=== PATIENT | female | born 1975 | race African-American/Black ===

== ENCOUNTER 2017-08-07 02:41 | Emergency (ER) | payer MEDICARE, MEDICAID ==
[~2017-08-07] VITALS: Ht 160 cm; Wt 91.5 kg
[~2017-08-07 02:41] MED LIST: ASPI-496 PO
[2017-08-07] MEDS ORDERED: KETOROLAC 30 MG/1 ML IVPush ONE (03:30)
[2017-08-07] MEDS ORDERED: SODIUM CHLORIDE FLUSH 10ML SYR IVF ONE (03:30)
[2017-08-07] MEDS ORDERED: KETOROLAC 30 MG/1 ML ONE (03:30)
[2017-08-07 03:31] LABS: HEMATOCRIT 39.5 % (34.6-47.8); HEMOGLOBIN 13.3 g/dL (11.7-16.4); WHITE BLOOD COUNT 8.8 x10^3/uL (3.4-10)
[2017-08-07 03:43] LABS: BLOOD UREA NITROGEN 19 mg/dL (7-18)
[2017-08-07 03:47] LABS: IS PT STATUS REG ER OR PRE ER? YES
[2017-08-07 04:36] VITALS: BP 144/68
== END 2017-08-07 04:41 | disposition home or self-care (01) ==
LOC: ED 04:30
DX: R07.89 Other chest pain (principal); R11.2 Nausea with vomiting, unspecified; R06.02 Shortness of breath; Z98.51 Tubal ligation status
CPT/HCPCS: 36415; 71010; 80048; 82040; 84484; 85025; 93005; 96374; 99285; J1885

== ENCOUNTER 2017-08-15 07:08 | Emergency (ER) | payer MEDICARE, MEDICAID ==
[~2017-08-15] VITALS: Ht 160 cm; Wt 90.0 kg
[2017-08-15] MEDS ORDERED: MORPHINE SULFATE 4 MG/ML, 1ML IVPush PRN (08:00)
[2017-08-15] MEDS ORDERED: MAALOX/HYOSCYAMINE/LIDOCAINE 45 ML BTL ONE (08:15)
[2017-08-15] MEDS ORDERED: MORPHINE SULFATE 4 MG/ML, 1ML ONE (08:15)
[2017-08-15] MEDS ORDERED: FAMOTIDINE 20 MG/2 ML ONE (08:16)
[2017-08-15 08:29] LABS: HEMATOCRIT 36.4 % (34.6-47.8); HEMOGLOBIN 12.2 g/dL (11.7-16.4); WHITE BLOOD COUNT 8.2 x10^3/uL (3.4-10)
[2017-08-15 08:40] LABS: ASPARTATE AMINO TRANSFERASE 12 U/L (15-37); BLOOD UREA NITROGEN 13 mg/dL (7-18)
[2017-08-15] MEDS ORDERED: FAMOTIDINE 20 MG/2 ML IVP ONE (09:00)
[2017-08-15] MEDS ORDERED: SODIUM CHLORIDE FLUSH 10ML SYR IVF ONE (09:00)
[2017-08-15] MEDS ORDERED: MAALOX/HYOSCYAMINE/LIDOCAINE 45 ML BTL PO ONE (09:00)
[2017-08-15] MEDS ORDERED: HYDROmorphone 1 MG/ML, 1ML IV ONE (09:30)
[2017-08-15 10:32] VITALS: BP 125/70
== END 2017-08-15 10:40 | disposition home or self-care (01) ==
LOC: ED 07:40
DX: N83.291 Other ovarian cyst, right side (principal); Z98.51 Tubal ligation status
CPT/HCPCS: 36415; 76830; 80053; 81003; 83690; 84703; 85025; 96374; S0028

== ENCOUNTER 2018-07-09 22:00 | Emergency (ER) | payer MEDICARE, MEDICAID ==
[2018-07-09] MEDS ORDERED: ASPIRIN 81 MG TABLET CHEW ONE (22:35)
[2018-07-09 22:49] LABS: BASOPHILS # (AUTO) 0.24 x10^3/uL (0-0.1); BASOPHILS % (AUTO) 3 % (0-1); EOSINOPHILS # (AUTO) 0.11 x10^3/uL (0-0.4); EOSINOPHILS % (AUTO) 1 % (1-7); LYMPHOCYTES # (AUTO) 3.49 x10^3/uL (1-3.4); LYMPHOCYTES % (AUTO) 38 % (22-44); MD NO; MEAN CORPUSCULAR HEMOGLOBIN 29.9 pg (27.0-34.8); MEAN CORPUSCULAR VOLUME 88.1 fL (80-100); MEAN PLATELET VOLUME 10.8 fL (7.4-10.4); MONOCYTES # (AUTO) 1.21 x10^3/uL (0.2-0.8); MONOCYTES % (AUTO) 13 % (2-9); NEUTROPHILS # (AUTO) 4.11 x10^3/uL (1.8-6.8); NEUTROPHILS % (AUTO) 45 % (42-75); PLATELET COUNT 244 x10^3/uL (130-400); RED BLOOD COUNT 4.35 x10^6/uL (3.82-5.3)
[2018-07-09] MEDS ORDERED: ASPIRIN 81 MG TABLET CHEW PO ONE (23:00)
[2018-07-09 23:02] LABS: ALANINE AMINOTRANSFERASE 17 U/L (12-78); ALBUMIN 3.3 g/dL (3.4-5.0); ANION GAP 6 mmol/L (5-15); CALCIUM 8.4 mg/dL (8.5-10.1); CHLORIDE 111 mmol/L (98-107); CREATININE 1.29 mg/dL (0.55-1.02)
[2018-07-09 23:06] LABS: ALKALINE PHOSPHATASE 54 U/L (45-117); BILIRUBIN,TOTAL 0.2 mg/dL (0.2-1.0); TOTAL PROTEIN 6.9 g/dL (6.4-8.2); TROPONIN I < 0.015 ng/mL (0.000-0.045)
[2018-07-10 00:20] VITALS: BP 133/76
== END 2018-07-10 00:26 | disposition home or self-care (01) ==
LOC: ED 23:59
DX: R07.2 Precordial pain (principal); G89.29 Other chronic pain; M10.9 Gout, unspecified; Z87.891 Personal history of nicotine dependence
CPT/HCPCS: 36415; 71045; 80053; 84484; 85025; 85379; 93005; 99285

== ENCOUNTER 2019-04-05 22:36 | Emergency (ER) | payer MEDICARE, MEDICAID ==
[~2019-04-05] VITALS: Ht 160 cm; Wt 108.8 kg
[2019-04-05 22:41] VITALS: BP 140/80
--- NOTE | 2019-04-05 23:29 | NUR ---
TO ROOM, URINE SAMPLE COLLECTED. PT COMPLAIN OF DRY MOUTH, INCREASED URINE, MULTIPLE COMPLAINTS
[2019-04-06] MEDS ORDERED: PROCHLORPERAZINE 10MG TABLET PO ONE
[2019-04-06] MEDS ORDERED: IBUPROFEN 600 MG TABLET PO ONE
[2019-04-06] MEDS ORDERED: PROCHLORPERAZINE 5 MG/ML, 2ML ONE (00:06)
[2019-04-06] MEDS ORDERED: IBUPROFEN 600 MG TABLET ONE (00:06)
[2019-04-06] MEDS ORDERED: PROCHLORPERAZINE 10MG TABLET ONE (00:11)
== END 2019-04-06 00:19 | disposition home or self-care (01) ==
LOC: ED 23:54
DX: I10 Essential (primary) hypertension (principal); R51 Headache; R11.0 Nausea; M10.9 Gout, unspecified; G89.29 Other chronic pain
CPT/HCPCS: 99283; Q0164

== ENCOUNTER 2019-10-19 22:05 | Emergency (ER) | payer MEDICARE, MEDICAID ==
[~2019-10-19] VITALS: Ht 160 cm; Wt 108.2 kg
[2019-10-19 23:00] LABS: ALBUMIN 3.5 g/dL (3.4-5.0); ANION GAP 4 mmol/L (5-15); CALCIUM 8.9 mg/dL (8.5-10.1); CHLORIDE 111 mmol/L (98-107); CREATININE 1.32 mg/dL (0.55-1.02)
[2019-10-19 23:05] LABS: TROPONIN I < 0.015 ng/mL (0.000-0.045)
[2019-10-19 23:21] LABS: BASOPHILS # (AUTO) 0.04 x10^3/uL (0-0.1); BASOPHILS % (AUTO) 0 % (0-1); EOSINOPHILS # (AUTO) 0.13 x10^3/uL (0-0.4); EOSINOPHILS % (AUTO) 1 % (1-7); LYMPHOCYTES # (AUTO) 3.42 x10^3/uL (1-3.4); LYMPHOCYTES % (AUTO) 32 % (22-44); MD NO; MEAN CORPUSCULAR HEMOGLOBIN 29.3 pg (27.0-34.8); MEAN CORPUSCULAR HGB CONC 33.4 g/dL (32.4-35.8); MEAN CORPUSCULAR VOLUME 87.8 fL (80-100); MEAN PLATELET VOLUME 11.4 fL (7.4-10.4); MONOCYTES # (AUTO) 1.31 x10^3/uL (0.2-0.8); MONOCYTES % (AUTO) 12 % (2-9); NEUTROPHILS # (AUTO) 5.74 x10^3/uL (1.8-6.8); NEUTROPHILS % (AUTO) 54 % (42-75); PLATELET COUNT 243 x10^3/uL (130-400); RED BLOOD COUNT 4.49 x10^6/uL (3.82-5.3); RED CELL DISTRIBUTION WIDTH 14.6 % (9.6-15.2)
[2019-10-20 00:21] VITALS: BP 140/82
== END 2019-10-20 00:23 | disposition home or self-care (01) ==
LOC: ED 23:59
DX: M79.662 Pain in left lower leg (principal); I10 Essential (primary) hypertension; G89.29 Other chronic pain; F17.200 Nicotine dependence, unspecified, uncomplicated
CPT/HCPCS: 36415; 80048; 82040; 83880; 84484; 85025; 93005; 99284

== ENCOUNTER 2019-12-03 15:57 | Emergency (ER) | payer MEDICARE, MEDICAID ==
[~2019-12-03] VITALS: Ht 160 cm; Wt 110.8 kg
[2019-12-03 15:59] VITALS: BP 156/87
[2019-12-03 16:54] LABS: ANION GAP 8 mmol/L (5-15); CALCIUM 9.3 mg/dL (8.5-10.1); CHLORIDE 111 mmol/L (98-107); CREATININE 1.07 mg/dL (0.55-1.02)
[2019-12-03 16:56] LABS: BASOPHILS # (AUTO) 0.03 x10^3/uL (0-0.1); BASOPHILS % (AUTO) 0 % (0-1); EOSINOPHILS # (AUTO) 0.26 x10^3/uL (0-0.4); EOSINOPHILS % (AUTO) 3 % (1-7); LYMPHOCYTES # (AUTO) 4.24 x10^3/uL (1-3.4); LYMPHOCYTES % (AUTO) 46 % (22-44); MD NO; MEAN CORPUSCULAR HEMOGLOBIN 28.8 pg (27.0-34.8); MEAN CORPUSCULAR HGB CONC 32.9 g/dL (32.4-35.8); MEAN CORPUSCULAR VOLUME 87.7 fL (80-100); MEAN PLATELET VOLUME 11.4 fL (7.4-10.4); MONOCYTES # (AUTO) 0.83 x10^3/uL (0.2-0.8); MONOCYTES % (AUTO) 9 % (2-9); NEUTROPHILS % (AUTO) 41 % (42-75); PLATELET COUNT 275 x10^3/uL (130-400); RED BLOOD COUNT 4.84 x10^6/uL (3.82-5.3)
== END 2019-12-03 17:32 | disposition home or self-care (01) ==
LOC: ED 17:05
DX: M79.10 Myalgia, unspecified site (principal); I10 Essential (primary) hypertension; Z98.51 Tubal ligation status
CPT/HCPCS: 36415; 80048; 85025; 99283

== ENCOUNTER 2019-12-10 11:06 | Emergency (ER) | payer MEDICAID, MEDICARE ==
[~2019-12-10] VITALS: Ht 160 cm; Wt 108.0 kg
--- NOTE | 2019-12-10 12:16 | NUR ---
PT C/O GENERALIZED PAIN STARTING ONE WEEK AGO. PT SEEN AND NEG FLU. PT BETTER FOR A WHILE AND PAIN RETURNED YESTERDAY. DENIES COUGH, N/V. CONNECTED TO MONITORING. CALL LIGHT IN REACH.
[2019-12-10] MEDS ORDERED: KETOROLAC 60 MG/2 ML ONE (12:20)
--- NOTE | 2019-12-10 12:25 | NUR ---
MEDS ADMIN PER JAN. PT RESTING ON [facility] WATCHING TV. NADN. FAMILY AT BEDSIDE.
[2019-12-10 12:27] LABS: BASOPHILS # (AUTO) 0.07 x10^3/uL (0-0.1); BASOPHILS % (AUTO) 1 % (0-1); EOSINOPHILS # (AUTO) 0.15 x10^3/uL (0-0.4); EOSINOPHILS % (AUTO) 2 % (1-7); LYMPHOCYTES # (AUTO) 3.22 x10^3/uL (1-3.4); LYMPHOCYTES % (AUTO) 42 % (22-44); MD NO; MEAN CORPUSCULAR HEMOGLOBIN 28.9 pg (27.0-34.8); MEAN CORPUSCULAR HGB CONC 33.1 g/dL (32.4-35.8); MEAN CORPUSCULAR VOLUME 87.1 fL (80-100); MEAN PLATELET VOLUME 10.7 fL (7.4-10.4); MONOCYTES # (AUTO) 0.83 x10^3/uL (0.2-0.8); MONOCYTES % (AUTO) 11 % (2-9); NEUTROPHILS % (AUTO) 44 % (42-75); PLATELET COUNT 237 x10^3/uL (130-400); RED BLOOD COUNT 4.58 x10^6/uL (3.82-5.3); RED CELL DISTRIBUTION WIDTH 14.4 % (9.6-15.2)
[2019-12-10] MEDS ORDERED: KETOROLAC 30 MG/1 ML IM ONE (12:30)
[2019-12-10 12:38] LABS: ALANINE AMINOTRANSFERASE 11 U/L (12-78); ALBUMIN 3.4 g/dL (3.4-5.0); ANION GAP 6 mmol/L (5-15); CALCIUM 8.9 mg/dL (8.5-10.1); CHLORIDE 109 mmol/L (98-107); CREATININE 1.18 mg/dL (0.55-1.02)
[2019-12-10 12:41] LABS: ALKALINE PHOSPHATASE 72 U/L (45-117); BILIRUBIN,TOTAL 0.4 mg/dL (0.2-1.0); TOTAL PROTEIN 7.2 g/dL (6.4-8.2)
--- NOTE | 2019-12-10 13:01 | NUR ---
PT STATES PAIN HAS DECREASED AFTER TORODAL ADMIN. PT RESTING COMFORTABLY ON GURNEY WATCHING TV. FAMILY AT BEDSIDE. AWAITING CT.
[2019-12-10 14:27] VITALS: BP 155/76
--- NOTE | 2019-12-10 14:27 | NUR ---
MD AT BEDSIDE TO UPDATE PT ON POC.
== END 2019-12-10 14:46 | disposition home or self-care (01) ==
LOC: ED 14:16
DX: R10.31 Right lower quadrant pain (principal); R10.32 Left lower quadrant pain; M54.5 Low back pain; I10 Essential (primary) hypertension
CPT/HCPCS: 36415; 74176; 80053; 83690; 85025; 96372; 99284; J1885